=== PATIENT | male | born 1955 | race Caucasian/White ===

== ENCOUNTER 2018-08-07 08:05 | Outpatient (CLI) | payer MEDICAID | END 2018-08-07 08:06 | disposition home or self-care (01) | LOC: WOUND 08:05 | PROVIDERS: ATTEND Surgery | DX: R21 Rash and other nonspecific skin eruption (principal); I10 Essential (primary) hypertension; F17.200 Nicotine dependence, unspecified, uncomplicated | CPT/HCPCS: 99205; G0463 ==

== ENCOUNTER 2018-08-14 07:59 | Outpatient (CLI) | payer MEDICAID | END 2018-08-14 08:00 | disposition home or self-care (01) | LOC: WOUND 07:59 | PROVIDERS: ATTEND Surgery | DX: L23.7 Allergic contact dermatitis due to plants, except food (principal); R21 Rash and other nonspecific skin eruption; I10 Essential (primary) hypertension; F17.200 Nicotine dependence, unspecified, uncomplicated | CPT/HCPCS: 99212; G0463 ==

== ENCOUNTER 2019-07-13 09:56 | Outpatient (CLI) | payer MEDICAID | END 2019-07-13 09:57 | disposition home or self-care (01) | LOC: WOUND 09:56 | PROVIDERS: ATTEND Surgery | DX: S50.822A Blister (nonthermal) of left forearm, initial encounter (principal); S50.821A Blister (nonthermal) of right forearm, initial encounter; L25.5 Unspecified contact dermatitis due to plants, except food; I10 Essential (primary) hypertension; F17.200 Nicotine dependence, unspecified, uncomplicated; Y93.H2 Activity, gardening and landscaping; Y93.89 Activity, other specified; Y92.89 Other specified places as the place of occurrence of the external cause; Y99.8 Other external cause status | CPT/HCPCS: 99212; G0463 ==